=== PATIENT | male | born 1980 | race Caucasian/White ===

== ENCOUNTER 2021-10-31 18:29 | Inpatient (IN) | payer MEDICAID, OTHER ==
[~2021-10-31] VITALS: Ht 170.2 cm; Wt 59.0 kg
[2021-10-31] MEDS ORDERED: KETOROLAC 60MG/2ML VIAL IM ONE (19:45)
[2021-10-31] MEDS ORDERED: HYDROCODONE/ACETAMINOPHEN 5/325MG TABLET PO ONE (19:45)
[2021-10-31] MEDS ORDERED: HYDROCODONE/ACETAMINOPHEN 5/325MG TABLET PO NR (21:00)
[2021-10-31] MEDS ORDERED: KETOROLAC 60MG/2ML VIAL IM NR (21:15)
[2021-10-31 22:02] LABS: BASOPHILS % 0.2 % (0.0-2.0); EOSINOPHILS % 0.5 % (0.0-5.0); HEMATOCRIT. 41.7 % (42.0-52.0); HEMOGLOBIN. 13.9 g/dL (14.0-18.0); LYMPHOCYTES % 28.9 % (20.0-50.0); MEAN CORPUSCULAR HEMOGLOBIN 30.2 pg (28.0-32.0); MEAN CORPUSCULAR VOLUME 90.3 fL (80.0-94.0); MEAN PLATELET VOLUME 6.9 fl (7.4-10.4); MONOCYTES % 7.1 % (2.0-8.0); NEUTROPHILS % 63.3 % (40.0-76.0); PLATELET 360 x1000/uL (130-400); RED BLOOD CELL COUNT 4.62 mill/uL (4.7-6.1); RED CELL DISTRIBUTION WIDTH 13.7 % (11.6-14.6)
[2021-10-31 22:10] LABS: CHLORIDE 108 mEq/L (98-107)
[2021-10-31 22:17] LABS: ETHANOL BLOOD < 10 mg/dL
[2021-11-01 09:23] LABS: *AMPHETAMINES SCREEN URINE PRESUMTIVE POSITIVE (NEGATIVE); *BARBITURATES SCREEN URINE NEGATIVE (NEGATIVE); *BENZODIAZEPINES SCREEN URINE NEGATIVE (NEGATIVE); *COCAINE SCREEN URINE NEGATIVE (NEGATIVE); CANNABINOID URINE SCREEN NEGATIVE (NEGATIVE); METHADONE URINE SCREEN NEGATIVE (NEGATIVE); OPIATES URINE SCREEN PRESUMTIVE POSITIVE (NEGATIVE); PHENCYCLIDINE URINE SCREEN NEGATIVE (NEGATIVE)
[2021-11-01 10:40] VITALS: BP 146/98
[2021-11-01] MEDS ORDERED: ONDANSETRON HCL 4MG/2ML INJ IV PRN ×2 (10:45→20:00)
[2021-11-01] MEDS ORDERED: NALOXONE HCL 0.4MG/ML VIAL IV PRN (11:00)
[2021-11-01 12:00] VITALS: BP 158/105
[2021-11-01 14:47] VITALS: BP 137/94
[2021-11-01 16:00] VITALS: BP 137/97
[2021-11-01] MEDS ORDERED: POLYMYXIN B SULFATE 500000 UNITS/VIAL ONE (16:18)
[2021-11-01] MEDS ORDERED: VANCOMYCIN HCL 1 GM/VIAL ONE ×2 (16:19→18:22)
[2021-11-01] MEDS ORDERED: LIDOCAINE HCL/EPINEPHRINE 1%-EPI 1:100,000 20 ML VIAL ONE (16:19)
[2021-11-01] MEDS ORDERED: LIDOCAINE HCL 1% 20ML VIAL (Pyxis) INJ ONE (19:03)
[2021-11-01] MEDS ORDERED: PROPOFOL 200MG/20ML VIAL IV ONE (19:03)
[2021-11-01] MEDS ORDERED: ONDANSETRON HCL 4MG/2ML INJ ONE (19:03)
[2021-11-01] MEDS ORDERED: DEXAMETHASONE 4MG/ML 1ML VIAL ONE (19:03)
[2021-11-01] MEDS ORDERED: MIDAZOLAM HCL 2 MG/2 ML VIAL ONE (19:04)
[2021-11-01] MEDS ORDERED: FENTANYL CITRATE/PF 50MCG/ML 2ML VIAL ONE ×2 (19:04→19:44)
[2021-11-01] MEDS ORDERED: HYDROMORPHONE HCL/PF 2MG/ML CPJ ONE (19:23)
[2021-11-01] MEDS ORDERED: CEFAZOLIN SODIUM 1000MG/VIAL ONE (19:44)
[2021-11-01] MEDS ORDERED: LABETALOL 5MG/ML SYR 20 MG/4 ML SYRINGE IV PRN (20:00)
[2021-11-01] MEDS ORDERED: HYDROMORPHONE HCL/PF 2MG/ML CPJ IV PRN (20:00)
[2021-11-01] MEDS ORDERED: MEPERIDINE HCL/PF 25MG/ML CPJ IV PRN (20:00)
[2021-11-01] MEDS ORDERED: HYDRALAZINE 20MG/ML VIAL ONE (20:47)
[2021-11-01 23:00] VITALS: BP 138/90
[2021-11-01] MEDS: CEFAZOLIN 2,000 MG in DEXT 5% WATER 100 ML IV SCH (23:13)
[2021-11-02] MEDS: HYDROCODONE/ACETAMINOPHEN 5/325MG TABLET PO PRN ×4 (01:28→15:38)
[2021-11-02 04:00] VITALS: BP 136/89
[2021-11-02] MEDS: CEFAZOLIN 2,000 MG in DEXT 5% WATER 100 ML IV SCH ×2 (05:02→15:37)
[2021-11-02 08:00] VITALS: BP 128/89
[2021-11-02 12:00] VITALS: BP 120/80
[2021-11-02] MEDS ORDERED: HYDR-4001 PO (12:54)
[2021-11-02 15:40] LABS: BASOPHILS % 0.2 % (0.0-2.0); EOSINOPHILS % 0.2 % (0.0-5.0); HEMATOCRIT. 35.5 % (42.0-52.0); LYMPHOCYTES % 34.1 % (20.0-50.0); MEAN CORPUSCULAR HEMOGLOBIN 30.2 pg (28.0-32.0); MEAN CORPUSCULAR VOLUME 89.4 fL (80.0-94.0); MEAN PLATELET VOLUME 6.9 fl (7.4-10.4); MONOCYTES % 12.2 % (2.0-8.0); NEUTROPHILS % 53.3 % (40.0-76.0); PLATELET 320 x1000/uL (130-400); RED BLOOD CELL COUNT 3.97 mill/uL (4.7-6.1); RED CELL DISTRIBUTION WIDTH 13.6 % (11.6-14.6)
[2021-11-02 15:51] LABS: CHLORIDE 104 mEq/L (98-107)
[2021-11-02 16:00] VITALS: BP 133/82
== END 2021-11-02 20:14 | disposition home or self-care (01) | DRG 313 ==
LOC: ER 18:29 → MICUSO 23:22 → 6EST 11-01 10:46
PROVIDERS: ADMIT Internal Medicine; ATTEND Internal Medicine
PROC: 0QSJ06Z Reposition Right Fibula with Intramedullary Internal Fixation Device, Open Approach (ICD-10-PCS; principal; 2021-11-01)
PROC: 0QSG06Z Reposition Right Tibia with Intramedullary Internal Fixation Device, Open Approach (ICD-10-PCS; 2021-11-01)
DX: S82.301A Unspecified fracture of lower end of right tibia, initial encounter for closed fracture (principal); E87.8 Other disorders of electrolyte and fluid balance, not elsewhere classified; E83.51 Hypocalcemia; F15.90 Other stimulant use, unspecified, uncomplicated; S82.831A Other fracture of upper and lower end of right fibula, initial encounter for closed fracture; Z20.822 Contact with and (suspected) exposure to COVID-19; V18.4XXA Pedal cycle driver injured in noncollision transport accident in traffic accident, initial encounter; Y93.55 Activity, bike riding; Y92.89 Other specified places as the place of occurrence of the external cause; Y99.8 Other external cause status; Z71.51 Drug abuse counseling and surveillance of drug abuser
CPT/HCPCS: 36415; 73590; 73610; 73630; 76000; 80048; 80053; 80305; 80320; 85025; 86850; 86900; 87426; 97162; 97535; 99285; C1713; J0360; J0690; J1100; J1170; J1885; J2250; J2405; J2704; J3010; J3370; J3490; J7060; L1830; G0480

== ENCOUNTER 2021-11-17 08:43 | Emergency (ER) | payer MEDICAID, OTHER ==
[~2021-11-17] VITALS: Ht 167.6 cm; Wt 59.0 kg
[~2021-11-17 08:43] MED LIST: HYDR-4001 PO
[2021-11-17] MEDS ORDERED: TRAMADOL 50MG TABLET PO ONE (09:15)
[2021-11-17 10:40] VITALS: BP 132/98
== END 2021-11-17 10:40 | disposition home or self-care (01) ==
LOC: ER 09:59
DX: S81.811D Laceration without foreign body, right lower leg, subsequent encounter (principal); X58.XXXD Exposure to other specified factors, subsequent encounter; F15.10 Other stimulant abuse, uncomplicated; I10 Essential (primary) hypertension
CPT/HCPCS: 99283